=== PATIENT | female | born 1980 | race African-American/Black ===

== ENCOUNTER 2018-08-01 07:06 | Observation (INO) | payer MEDICAID ==
[~2018-08-01] VITALS: Ht 160 cm; Wt 106.6 kg
[~2018-08-01 07:06] MED LIST: AMOXICILLIN500 MG PO; NORCO1 TA1 PO; VENTOLIN HFA IN
--- NOTE | 2018-08-01 07:06 | NUR ---
PT ALERT WARMA ND DRY. IMMEDIATELY TO ROOM FOR BEDSIDE TRIAGE AND EKG
--- NOTE | 2018-08-01 07:10 | NUR ---
INITIATED SL NITRO AND 324MG ASA. PT STATES PAIN IS 6/10.
[2018-08-01] MEDS ORDERED: LISINOPRIL10 MG PO (07:27)
[2018-08-01] MEDS ORDERED: ACETAZOLAMID125 MG PO (07:27)
[2018-08-01] MEDS ORDERED: COREG3.125 MG PO (07:28)
[2018-08-01 07:36] LABS: HEMATOCRIT 37.3 % (37.0-47.0); HEMOGLOBIN 11.8 g/dl (12.0-16.0); IMMATURE GRANULOCYTES 0.3 % (0.0-5.0); MEAN CELL VOLUME 83.4 fL CALC (80.0-100.0); MEAN CORPUSCULAR HGB 26.4 pG CALC (26.0-32.0); MEAN CORPUSCULAR HGB CONC 31.6 g/L CALC (32.0-36.0); NEUT# 4.05 thou/uL (2.00-7.15); RED BLOOD COUNT 4.47 mill/uL (4.20-5.60); RED CELL DISTRI WIDTH 12.3 % (11.5-15.5)
[2018-08-01 07:51] LABS: ANION GAP 12 (6-22 (CALC)); BUN 14 mg/dL (7-17); BUN/CREATININE RATIO 17 (12-20 (CALC)); CARBON DIOXIDE 24 mmol/l (22-30); CHLORIDE 108 mmol/l (95-108); CREATININE 0.8 mg/dL (0.5-1.0); GFR > 60 ML/MIN (>=60 (CALC)); GFR FOR AFR.AMER. > 60 ML/MIN (>=60 (CALC)); SODIUM 140 mmol/l (137-146)
--- NOTE | 2018-08-01 08:20 | NUR ---
PT MEDICATED FOR PAIN 12/06. RESP EVEN AND UNLABORED. VSS. LIGHTS DIMMED FOR COMFORT
--- NOTE | 2018-08-01 08:30 | NUR ---
DR SIDHU AT BEDSIDE TO DISCUSS ADMIT AND POC, PT AGREEABLE. STATES PAIN IS ALMOST GONE. VSS
--- NOTE | 2018-08-01 09:23 | NUR ---
REPORT CALLED TO ANNIE ALEMAN
--- NOTE | 2018-08-01 09:40 | NUR ---
PT ADMITTED TO MED SURG ROOM 288 VIA WHEELCHAIR WITH TELE IN PLACE, PT STANDS AND TRANSFER TO STANDING SCALE, THEN INTO BED WITH STRONG STEADY, ADMISSION ASSESSMENT COMPLETED SEE INTERVENTIONS, LUNGS CLEAR ABD SOFT, STATES PAIN STARTED 3HRS PRIOR TO ARRIVAL TO ER, STATES SHE HAS A CARDIAC HISTORY WITH CARDIOMYOPATHY WILL REQUEST RECORDS FROM HER BATH ATTENDANT. VS STABLE BP SLIGHTLY ELEVATED STATES SHE DIDN'T TAKE HER MEDICATIONS THIS AM. ORIENTED TO ROOM AND UNIT, CALL TIWARI WITHIN REACH, SAFETY MEASURES INTRODUCED, WILL CONTINUE TO MONITOR.
--- NOTE | 2018-08-01 09:45 | NUR ---
PT TO MEDSURG IN STABLE CONDITION VIA WC IN STABLE CONDITION
[2018-08-01 09:50] VITALS: BP 176/79
--- NOTE | 2018-08-01 12:30 | NUR ---
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
--- NOTE | 2018-08-01 14:31 | NUR ---
MEDICAL RECORDS REQUESTED FROM PT PRINTMAKER, NO ONE REC'D YET DENIES WORSENING PAIN, RESTING WATCHING TELEVISION, CALL TIWARI WITHIN REACH
--- NOTE | 2018-08-01 19:30 | NUR ---
PATIENT RESTING IN BED-AWAKE ALERT AND ORIENTEDX3. PATIENT WITH NO COMPLAINTS AT THIS TIME. DENIES ANY CHEST PAIN. TELE MONITOR IN PLACE. SALINE LOCK TO LEFT AC INTACT AND APPEARS HEALTHY AT THIS TIME. LUNGS ARE CLEAR. ABD IS SOFT WOITH BS+. PATIENT WITH TRACE PEDAL EDEMA TO LLE. DENIES ANY DIFFICULTY WITH URINATION. SAFETY PRECAUTIONS REINFORCED.CALL LIGHT IN REACH. WILL CONT TO MONITOR.
[2018-08-01 20:14] VITALS: BP 120/74
--- NOTE | 2018-08-01 21:00 | NUR ---
PATIENT RESTING IN BED AT THIS TIME TAKING HS MEDS-C/O SHARP SUBSTERNAL CHEST [id number]. SKIN IS WARM AND DRY, NO SOB NOTED. VS TAKEN AND RECORDED. TROP DRAWN ORDERED. EKG ORDERED FOR CHEST PAIN. NITRO 0.4MG SL GIVEN ORDERED. DR. GILMORE CALLED AND UPDATED. NEW ORDERS RECIEVED. WILL MEDICATE FURTHER WHEN EMAR UPDATED. SAFETY PRECAUTIONS REINFORCED. CALL LIGHT IN REACH.
[2018-08-01 21:08] VITALS: BP 123/78
[2018-08-01 22:00] VITALS: BP 121/78
--- NOTE | 2018-08-01 22:00 | NUR ---
PATIENT RESTING IN BED-STATES THAT HER PAIN HAS IMPROVED BUT STILL WITH SOME. TROP WAS NEG AND THE EKG UNCHANGED. VS REMAIN STABLE. MEDICATED WIH NITRO 04MG SL, TYLENOL FOR HEADACE AND RESTORIL FOR SLEEP. PATIENT MEDICATED WITH ZOFRAN 34MG IVP FOR NAUSEA. IV SITE TO LEFT AC INTACT AND HEALTHY AT THIS TIME. CALL LIGHT IN REACH. WILL CONT TO MONITOR.
--- NOTE | 2018-08-02 | NUR ---
APPEARS SLEEPING AT THIS TIME WITH EYES CLOSED. CALL LIGHT IN REACH. WILL CONT TO MONITOR.
[2018-08-02 00:03] VITALS: BP 104/63
--- NOTE | 2018-08-02 04:00 | NUR ---
PATIENT RESTING IN BED APPEARS SLEEPING WOITH EYES CLOSED. TELE MONITOR IN PLACE. CALL LIGHT IN REACH. WILL CONT TO MONITOR.
[2018-08-02 04:08] LABS: HEMATOCRIT 41.2 % (37.0-47.0); HEMOGLOBIN 12.9 g/dl (12.0-16.0); IMMATURE GRANULOCYTES 0.4 % (0.0-5.0); MEAN CELL VOLUME 85.1 fL CALC (80.0-100.0); MEAN CORPUSCULAR HGB 26.7 pG CALC (26.0-32.0); MEAN CORPUSCULAR HGB CONC 31.3 g/L CALC (32.0-36.0); NEUT# 3.34 thou/uL (2.00-7.15); RED BLOOD COUNT 4.84 mill/uL (4.20-5.60); RED CELL DISTRI WIDTH 12.4 % (11.5-15.5)
[2018-08-02 04:14] LABS: ALBUMIN 3.5 g/dL (3.2-5.0); ALKALINE PHOSPHATASE 53 u/l (38-126); ANION GAP 11 (6-22 (CALC)); BILIRUBIN, TOTAL 0.3 mg/dL (0.0-1.4); BUN 10 mg/dL (7-17); BUN/CREATININE RATIO 11 (12-20 (CALC)); CARBON DIOXIDE 24 mmol/l (22-30); CHLORIDE 110 mmol/l (95-108); CREATININE 0.9 mg/dL (0.5-1.0); GFR > 60 ML/MIN (>=60 (CALC)); GFR FOR AFR.AMER. > 60 ML/MIN (>=60 (CALC)); MAGNESIUM 2.1 mg/dL (1.6-2.3); POTASSIUM 3.8 mmol/l (3.5-5.1); SGOT/AST 18 u/l (14-36); SODIUM 141 mmol/l (137-146)
[2018-08-02 05:22] VITALS: BP 84/54
--- NOTE | 2018-08-02 07:05 | NUR ---
PT REPORT RECIEVED FROM ANNIE YOUNG. PT SLEEPING. NO S/S OF DISTRESS. CALL LIGHT IN REACH. WILL CONTINUE TO MONITOR
[2018-08-02 08:06] VITALS: BP 102/50
--- NOTE | 2018-08-02 08:06 | NUR ---
PT ASSESSMENT COMPLETE. A/O X3. SPEECH IS CLEAR. RESP EVEN AND UNLABORED. LUNG SOUNDS CLEAR. NO C/O CHEST PAIN AT THIS TIME. TELE IN PLACE. BOWEL SOUNDS ACTIVE X4. STRONG RADIAL AND PEDAL PULSES. #20 LAC SL. FLUSHED AND PATENT. SITE APPEARS HEALTHY. PT HAS TRACE OF EDEMA TO BLE. MORE PROMINENT IN ANKLES/FEET. ENCOURAGED ELEVATION ON PILLOW. PT DENIES ANY NEEDS AT THIS TIME. POC DISCUSSED. SAFETY PRECAUTIONS IN PLACE. CALL LIGHT IN REACH. WILL CONTINUE TO MONITOR.
[2018-08-02 12:11] VITALS: BP 119/81
--- NOTE | 2018-08-02 12:45 | NUR ---
PT SITTING IN BED. NO S/S OF DISTRESS. RESP EVEN AND UNLABORED. TELE IN PLACE. PT DENIES ANY CHEST PAIN AT THIS TIME. CALL LIGHT IN REACH. WILL CONTINUE TO MONITOR
--- NOTE | 2018-08-02 15:43 | NUR ---
PT RESTING IN BED. NO C/O OF PAIN AT THIS TIME. TELE IN PLACE. CALL LIGHT IN REACH. WILL CONTINUE TO MONITOR
[2018-08-02] MEDS ORDERED: NITROSTAT0.4 MG SL (16:31)
--- NOTE | 2018-08-02 17:20 | NUR ---
d/c instructions and use of prescription discussed w/ pt. pt states understanding. iv removed. catheter intact. pt denies any further question. pt getting dressed at this time.
--- NOTE | 2018-08-02 18:19 | NUR ---
Discharge instructions given. Patient verbalizes understanding of same. Discharged in stable condition via Wheelchair to Home with family. All belongings sent with pt.
== END 2018-08-02 18:20 | disposition home or self-care (01) ==
LOC: ED 07:06 → ED-I 08:22 → ED 08:34 → MS2 08:35
PROVIDERS: Family Medicine; ADMIT Internal Medicine Nephrology; ATTEND Internal Medicine Nephrology
DX: R07.89 Other chest pain (principal); I10 Essential (primary) hypertension; I42.0 Dilated cardiomyopathy; G93.2 Benign intracranial hypertension; J45.909 Unspecified asthma, uncomplicated; M19.90 Unspecified osteoarthritis, unspecified site; E66.9 Obesity, unspecified; I25.2 Old myocardial infarction; T46.3X6A Underdosing of coronary vasodilators, initial encounter; Z91.128 Patient's intentional underdosing of medication regimen for other reason; Z68.41 Body mass index [BMI] 40.0-44.9, adult; Z23 Encounter for immunization
CPT/HCPCS: G0378

== ENCOUNTER 2018-09-18 02:51 | Emergency (ER) | payer MEDICAID ==
[~2018-09-18] VITALS: Ht 160 cm; Wt 100.0 kg
[~2018-09-18 02:51] MED LIST changes: +ACETAZOLAMID125 MG PO; +COREG3.125 MG PO; +LISINOPRIL10 MG PO; +NITROSTAT0.4 MG SL
[2018-09-18 03:34] LABS: HEMATOCRIT 38.8 % (37.0-47.0); HEMOGLOBIN 12.1 g/dl (12.0-16.0); IMMATURE GRANULOCYTES 0.2 % (0.0-5.0); MEAN CELL VOLUME 83.8 fL CALC (80.0-100.0); MEAN CORPUSCULAR HGB 26.1 pG CALC (26.0-32.0); MEAN CORPUSCULAR HGB CONC 31.2 g/L CALC (32.0-36.0); NEUT# 4.02 thou/uL (2.00-7.15); RED BLOOD COUNT 4.63 mill/uL (4.20-5.60); RED CELL DISTRI WIDTH 12.8 % (11.5-15.5)
[2018-09-18 03:52] LABS: ALBUMIN 3.9 g/dL (3.2-5.0); ALKALINE PHOSPHATASE 53 u/l (38-126); ANION GAP 12 (6-22 (CALC)); BILIRUBIN, TOTAL 0.3 mg/dL (0.0-1.4); BUN 14 mg/dL (7-17); BUN/CREATININE RATIO 16 (12-20 (CALC)); CARBON DIOXIDE 27 mmol/l (22-30); CHLORIDE 104 mmol/l (95-108); CREATININE 0.8 mg/dL (0.5-1.0); GFR > 60 ML/MIN (>=60 (CALC)); GFR FOR AFR.AMER. > 60 ML/MIN (>=60 (CALC)); SGOT/AST 18 u/l (14-36); SODIUM 139 mmol/l (137-146); TOTAL PROTEIN 7.2 g/dL (6.3-8.2)
[2018-09-18 04:04] LABS: MYOGLOBIN 21 ng/mL (0 - 62)
[2018-09-18] MEDS ORDERED: TORADOL PO (04:11)
[2018-09-18 04:39] VITALS: BP 118/59
== END 2018-09-18 04:40 | disposition home or self-care (01) ==
LOC: ED 02:51
PROVIDERS: Family Medicine
DX: M94.0 Chondrocostal junction syndrome [Tietze] (principal); I10 Essential (primary) hypertension; I42.9 Cardiomyopathy, unspecified; I25.2 Old myocardial infarction; G93.2 Benign intracranial hypertension; J45.909 Unspecified asthma, uncomplicated; R07.9 Chest pain, unspecified